=== PATIENT | male | born 1980 | race American Indian/Alaskan Native ===

== ENCOUNTER 2018-05-24 09:11 | Emergency (ER) | payer OTHER ==
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
[2018-05-24 13:01] VITALS: BP 147/93
== END 2018-05-24 13:00 | disposition home or self-care (01) ==
LOC: ED 09:11
DX: S76.012A Strain of muscle, fascia and tendon of left hip, initial encounter (principal); F17.200 Nicotine dependence, unspecified, uncomplicated; Z90.49 Acquired absence of other specified parts of digestive tract; V89.2XXA Person injured in unspecified motor-vehicle accident, traffic, initial encounter; Y93.89 Activity, other specified; Y92.89 Other specified places as the place of occurrence of the external cause; Y99.8 Other external cause status
CPT/HCPCS: 99282

== ENCOUNTER 2018-07-15 02:00 | Emergency (ER) | payer SELFPAY ==
[2018-07-15] MEDS ORDERED: ASPIRIN PO ONE (03:10)
[2018-07-15 03:40] LABS: Basophils % (Auto) 0.7 % (0.0-1.8); Eosinophils % (Auto) 0.2 % (0.0-4.3); Hematocrit 43.9 % (35.5-45.6); Hemoglobin 13.8 gm/dl (11.8-15.2); Lymphocytes # (Auto) 2.3 K/mm3 (1.2-5.4); Mean Corpuscular HGB Conc 31 % (32-34); Mean Corpuscular Volume 72 fl (84-94); Monocytes # (Auto) 0.7 K/mm3 (0.0-0.8); Monocytes % (Auto) 11.7 % (0.0-7.3); Platelet Count 216 K/mm3 (140-440); Red Blood Count 6.14 M/mm3 (3.65-5.03); Red Cell Distribution Width 14.2 % (13.2-15.2)
[2018-07-15 03:45] LABS: Mean Corpuscular Hemoglobin 23 pg (28-32)
[2018-07-15 03:59] LABS: BUN/Creatinine Ratio 13; Blood Urea Nitrogen 13 mg/dL (9-20); Calcium 9.3 mg/dL (8.4-10.2); Hemolysis Index 2
--- NOTE | 2018-07-15 09:38 | Emergency Department Report ---
ED General Adult HPI - General Chief complaint: Chest Pain Stated complaint: CHEST PAIN Time Seen by Provider: 07/15/18 09:31 Source: patient Mode of arrival: Ambulatory Limitations: No Limitations - History of Present Illness Initial comments: Patient is a 38-year-old male who is complaining of some chest discomfort for the last 3 days. Patient states he has a nonproductive cough and does feel congested with some mild achiness. Patient states it's a sharp burning sensation to the chest but denies any discomfort when he takes a deep breath. Patient states is worse at night better in the day. Patient is a nonsmoker. Patient states pain is 7 out of 10 in severity when his symptoms worse. Severity scale (0 -10): 7 - Related Data Previous Rx's Medication Instructions Recorded Last Taken Type Hydrocodone Bit/Acetaminophen 1 each PO Q6HR PRN #10 tablet 10/20/13 Unknown Rx [Vicodin 5/500] Loratadine [Claritin] 10 mg PO DAILY #20 tablet 10/20/13 Unknown Rx Naproxen Sodium [Aleve] 220 mg PO Q8H PRN #50 tablet 10/20/13 Unknown Rx Cyclobenzaprine [Flexeril 10 MG 10 mg PO TID PRN #15 tablet 05/24/18 Unknown Rx TAB] Ibuprofen [Motrin 800 MG tab] 800 mg PO Q8HR PRN #15 tablet 05/24/18 Unknown Rx ALBUTEROL Inhaler (OR & NICU) 2 puff IH QID PRN #1 inhalation 07/15/18 Unknown Rx [ProAir HFA Inhaler] Benzonatate [Tessalon Perles] 100 mg PO Q8HR #10 capsule 07/15/18 Unknown Rx predniSONE [Deltasone] 20 mg PO QDAY #5 tab 07/15/18 Unknown Rx Allergies Allergy/AdvReac Type Severity Reaction Status Date / Time No Known Allergies Allergy Verified 07/15/18 03:10 ED Review of Systems ROS: Stated complaint: CHEST PAIN Other details as noted in HPI Comment: All other systems reviewed and negative ED Past Medical Hx - Past Medical History Previous Medical History?: Yes Hx Hypertension: No Hx Heart Attack/AMI: No Additional medical history: enlarged heart - Surgical History Past Surgical History?: Yes Hx Appendectomy: Yes - Social History Smoking Status: Current Every Day Smoker Substance Use Type: None - Medications Home Medications: Home Medications Medication Instructions Recorded Confirmed Last Taken Type Hydrocodone Bit/Acetaminophen 1 each PO Q6HR PRN #10 tablet 10/20/13 Unknown Rx [Vicodin 5/500] Loratadine [Claritin] 10 mg PO DAILY #20 tablet 10/20/13 Unknown Rx Naproxen Sodium [Aleve] 220 mg PO Q8H PRN #50 tablet 10/20/13 Unknown Rx Cyclobenzaprine [Flexeril 10 MG 10 mg PO TID PRN #15 tablet 05/24/18 Unknown Rx TAB] Ibuprofen [Motrin 800 MG tab] 800 mg PO Q8HR PRN #15 tablet 05/24/18 Unknown Rx ALBUTEROL Inhaler (OR & NICU) 2 puff IH QID PRN #1 inhalation 07/15/18 Unknown Rx [ProAir HFA Inhaler] Benzonatate [Tessalon Perles] 100 mg PO Q8HR #10 capsule 07/15/18 Unknown Rx predniSONE [Deltasone] 20 mg PO QDAY #5 tab 07/15/18 Unknown Rx ED Physical Exam - General Limitations: No Limitations General appearance: alert, in no apparent distress - Head Head exam: Present: atraumatic, normocephalic - Eye Eye exam: Present: normal appearance - ENT ENT exam: Present: mucous membranes moist - Neck Neck exam: Present: normal inspection - Respiratory Respiratory exam: Present: normal lung sounds bilaterally. Absent: respiratory distress, wheezes, rales, rhonchi, stridor - Cardiovascular Cardiovascular Exam: Present: regular rate, normal rhythm. Absent: systolic murmur, diastolic murmur, rubs, gallop - GI/Abdominal GI/Abdominal exam: Present: soft, normal bowel sounds - Rectal Rectal exam: Present: deferred - Extremities Exam Extremities exam: Present: normal inspection - Back Exam Back exam: Present: normal inspection - Neurological Exam Neurological exam: Present: alert, oriented X3 - Psychiatric Psychiatric exam: Present: normal affect, normal mood - Skin Skin exam: Present: warm, dry, intact, normal color. Absent: rash ED Course Vital Signs 07/15/18 07/15/18 02:13 08:10 Temperature 99.3 F 98.8 F Pulse Rate 106 H 88 Respiratory 19 16 Rate Blood Pressure 164/111 162/93 O2 Sat by Pulse 98 99 Oximetry ED Medical Decision Making - Lab Data Result diagrams: 07/15/18 03:16 07/15/18 03:16 Lab Results 07/15/18 07/15/18 07/15/18 Range/Units 03:16 03:16 08:03 WBC 5.7 (4.5-11.0) K/mm3 RBC 6.14 H (3.65-5.03) M/mm3 Hgb 13.8 (11.8-15.2) gm/dl Hct 43.9 (35.5-45.6) % MCV 72 L (84-94) fl MCH 23 L (28-32) pg MCHC 31 L (32-34) % RDW 14.2 (13.2-15.2) % Plt Count 216 (140-440) K/mm3 Lymph % (Auto) 40.0 H (13.4-35.0) % [place] % (Auto) 11.7 H (0.0-7.3) % Eos % (Auto) 0.2 (0.0-4.3) % Baso % (Auto) 0.7 (0.0-1.8) % Lymph # 2.3 (1.2-5.4) K/mm3 [place] # 0.7 (0.0-0.8) K/mm3 Eos # 0.0 (0.0-0.4) K/mm3 Baso # 0.0 (0.0-0.1) K/mm3 Seg Neutrophils % 47.4 (40.0-70.0) % Seg Neutrophils # 2.7 (1.8-7.7) K/mm3 Sodium 142 (137-145) mmol/L Potassium 3.8 (3.6-5.0) mmol/L Chloride 103.6 (98-107) mmol/L Carbon Dioxide 28 (22-30) mmol/L Anion Gap 14 mmol/L BUN 13 (9-20) mg/dL Creatinine 1.0 (0.8-1.5) mg/dL Estimated GFR > 60 ml/min BUN/Creatinine Ratio 13 % Glucose 96 (75-100) mg/dL Calcium 9.3 (8.4-10.2) mg/dL Troponin T < 0.010 < 0.010 (0.00-0.029) ng/mL - EKG Data -: EKG Interpreted by Me - EKG Data 07/15/18 09:35 EKG shows sinus tachycardia 107 normal axis normal and was there is a left atrial enlargement patient does appear to have Q waves in the septal leads but otherwise there is no ST elevations or depression. Interpretation is 209 - Medical Decision Making Patient a 38-year-old male who is complaining of congestion and nonproductive cough. Patient likely has a upper respiratory infection. Patient's lung sounds are clear his oxygen levels 9% I do not suspect pneumonia at this time. Patient does have Q waves in the septal leads and does have slight elevation of his blood pressure. EKG changes most likely secondary to elevation of blood pressure. Patient will be given meds for symptomatic relief of his upper respiratory infection be discharged home with internal medicine follow-up. Critical care attestation.: If time is entered above; I have spent that time in minutes in the direct care of this critically ill patient, excluding procedure time. ED Disposition Clinical Impression: Hypertensive urgency Upper respiratory infection Qualifiers: URI type: unspecified URI Qualified Code(s): J06.9 - Acute upper respiratory infection, unspecified Disposition: DC-01 TO HOME OR SELFCARE Is pt being admited?: No Does the pt Need Aspirin: No Condition: Stable Instructions: Hypertension (ED), Upper Respiratory Infection (ED) Additional Instructions: Please have your blood pressure rechecked once you have no longer feeling ill. Your blood pressure was 162/93 at this time. This may be falsely elevated because of your illness. Referrals: PRIMARY CARE [Primary Care Provider] - 3-5 Days Time of Disposition: 09:38
[2018-07-15 09:48] VITALS: BP 151/92
== END 2018-07-15 09:49 | disposition home or self-care (01) ==
LOC: ED 02:00
DX: J06.9 Acute upper respiratory infection, unspecified (principal); I16.0 Hypertensive urgency; F17.200 Nicotine dependence, unspecified, uncomplicated; Z90.89 Acquired absence of other organs
CPT/HCPCS: 36415; 80048; 84484; 85025; 93005; 93010; 99284